=== PATIENT | male | born 1980 | race Caucasian/White ===

== ENCOUNTER 2017-08-19 13:44 | Emergency (ER) | payer SELFPAY ==
--- NOTE | 2017-08-19 15:28 | UC ---
Laceration HPI - HPI Summary HPI Summary: About 2 hours ago pt was cutting plastic strap at work and the knife slipped, cutting L index finger. Denies numbness or weakness in the finger. Last tetanus November 2014 from different finger injury. - History Of Current Complaint Hx Obtained From: Patient Laceration Location: Finger Mechanism Of Injury: Sharp Trauma Onset/Duration: Sudden Onset Severity: Mild <Yenifer Worrell - Last Filed: 08/19/17 15:58> <Sarah Quintanilla - Last Filed: 08/19/17 16:06> - History Of Current Complaint Chief Complaint: UCLaceration Stated Complaint: FINGER CUT, LEFT HAND Time Seen by Provider: 08/19/17 15:12 - Allergies/Home Medications Allergies/Adverse Reactions: Allergies Allergy/AdvReac Type Severity Reaction Status Date / Time No Known Allergies Allergy Verified 08/19/17 14:06 PMH/Surg Hx/FS Hx/Imm Hx Previously Healthy: Yes - Surgical History Surgical History: Yes Surgery Procedure, Year, and Place: TONSILLECTOMY - Family History Known Family History: Positive: Other - cataracts in mother - Social History Occupation: Employed Full-time Lives: With Family Alcohol Use: Daily Alcohol Amount: 1-2 beer at night Substance Use Type: None Smoking Status (MU): Former Smoker - Immunization History Most Recent Tetanus Shot: unsure, "may have been within last couple years" <Yenifer Worrell - Last Filed: 08/19/17 15:58> Review of Systems Constitutional: Negative Skin: Other - lac Eyes: Negative ENT: Negative Respiratory: Negative Cardiovascular: Negative Gastrointestinal: Negative Genitourinary: Negative Motor: Negative Neurovascular: Negative Musculoskeletal: Negative Neurological: Negative Psychological: Negative Is Patient Immunocompromised?: No All Other Systems Reviewed And Are Negative: Yes <Yenifer Worrell - Last Filed: 08/19/17 15:58> Physical Exam Triage Information Reviewed: Yes Appearance: Well-Appearing, No Pain Distress, Well-Nourished Vital Signs: Initial Vital Signs Temp 99.7 F 08/19/17 13:59 Pulse 74 08/19/17 13:59 Resp 18 08/19/17 13:59 BP 154/104 08/19/17 13:59 Pulse Ox 98 08/19/17 13:59 Vital Signs Reviewed: Yes Eye Exam: Normal Eyes: Positive: Conjunctiva Clear ENT Exam: Normal ENT: Positive: Normal ENT inspection, Hearing grossly normal, Pharynx normal, TMs normal Dental Exam: Normal Neck exam: Normal Neck: Positive: Supple, Nontender, No Lymphadenopathy Respiratory Exam: Normal Respiratory: Positive: Chest non-tender, Lungs clear, Normal breath sounds, No respiratory distress, No accessory muscle use Cardiovascular Exam: Normal Cardiovascular: Positive: RRR, No Murmur Musculoskeletal Exam: Normal, Other - Full Musculoskeletal: Positive: Strength Intact, ROM Intact Neurological Exam: Normal Psychological Exam: Normal Skin Exam: Other - curvilinear shallow laceration over L 2nd DIP dorsal aspect. Full tendon function. <Yenifer Worrell - Last Filed: 08/19/17 15:58> Vital Signs: Initial Vital Signs Temp 99.7 F 08/19/17 13:59 Pulse 74 08/19/17 13:59 Resp 18 08/19/17 13:59 BP 154/104 08/19/17 13:59 Pulse Ox 98 08/19/17 13:59 <Sarah Quintanilla - Last Filed: 08/19/17 16:06> Laceration Repair - Laceration Repair 1 Description: Linear Laceration Size After Repair: Length (cm) - 3, Width (mm) - 0, Depth (mm) - 0 Modified For Repair: No Cleansing Completed Via Routine Prep: Yes Irrigation With Pressure Irrigation Device: Yes Closure Material: Skin Adhesive, SteriStrips Closure Method: Single Layer <Yenifer Worrell - Last Filed: 08/19/17 15:58> Laceration Course/Dx - Differential Dx - Laceration/Wound Provider Diagnoses: L second finger laceration <Yenifer Worrell - Last Filed: 08/19/17 15:58> Discharge <Yenifer Worrell - Last Filed: 08/19/17 15:58> <Sarah Quintanilla - Last Filed: 08/19/17 16:06> - Discharge Plan Condition: Stable Disposition: HOME Patient Education Materials: Finger Laceration (ED), Steristrips (ED) Referrals: Guillermo Medina MD [Primary Care Provider] - 2 Weeks Additional Instructions: Keep the splint on ALL THE TIME while working for 7 days. Try to keep the steristrips dry for a minimum of 72 hours before you fully wash your hands or bring that hand into the shower (5 days is better, if possible). If the wound re -opens, simply apply a fresh dressing and keep wearing the splint until it is healed. Attestation Statement User Type: Provider - I was available for consult. This patient was seen by the AKILAH. The patient was not presented to, seen by, or examined by me. -Viji <Sarah Quintanilla - Last Filed: 08/19/17 16:06> Addendum entered and electronically signed by Yenifer Worrell NP 08/19/17 15:59 : UC Addendum Addendum: Addition diagnosis should include elevated blood pressure.
[2017-08-19 16:07] VITALS: BP 166/112
== END 2017-08-19 15:50 | disposition home or self-care (01) ==
LOC: UCEAST 13:44
DX: S61.211A Laceration without foreign body of left index finger without damage to nail, initial encounter (principal); W26.0XXA Contact with knife, initial encounter; Y93.9 Activity, unspecified; Y92.9 Unspecified place or not applicable; Y99.9 Unspecified external cause status; Z72.89 Other problems related to lifestyle; Z87.891 Personal history of nicotine dependence
CPT/HCPCS: 12002; 99211; G0463

== ENCOUNTER 2017-08-20 19:07 | Emergency (ER) | payer BC ==
[2017-08-20] MEDS ORDERED: HYDROmorphone INJ* 2 MG/ML CARPUJECT SYRINGE IM ONE (19:45)
[2017-08-20] MEDS ORDERED: Promethazine INJ(RESTRICTED)* 25 MG/ML 1 ML VIAL IM ONE (19:45)
[2017-08-20] MEDS ORDERED: Cephalexin CAP* 500 MG PO ONE ×2 (19:47→20:44)
[2017-08-20] MEDS ORDERED: Lidocaine 2% PF * 5 ML VIAL ONE (19:57)
[2017-08-20] MEDS ORDERED: PROCHLORPERAZINE INJ 5 MG/ML 2 ML VIAL ONE (20:04)
--- NOTE | 2017-08-20 20:16 | RAD ---
INDICATION: Crush injury to right middle and ring fingers COMPARISON: None. TECHNIQUE: 4 views of the right hand were obtained. FINDINGS: There is evidence of soft tissue injury involving the distal tips of the right middle and ring fingers. The distal tuft of the right middle finger is a small nondisplaced fracture on its palmar radial border. The tuft otherwise exhibits a bifid appearance which is either congenital or related to the recent traumatic injury. Remaining visualized bones are intact and appropriately aligned. IMPRESSION: Clear evidence of soft tissue injury of the distal right middle and ring fingers with nondisplaced fracture of the right middle finger distal tuft.
[2017-08-20] MEDS ORDERED: PROCHLORPERAZINE INJ 5 MG/ML 2 ML VIAL IM ONE (20:45)
[2017-08-20 21:13] VITALS: BP 169/102
--- NOTE | 2017-08-20 21:13 | ED ---
Randa Diaz Nilda, scribed for Hoang Padilla MD on 08/20/17 at 2001 . Adult Trauma - HPI Summary HPI Summary: This patient is a 36 year old M BIBA to [facility] with a chief complaint of finger laceration on tips of 3rd and 4th fingers on the right hand earlier this evening while at work. 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 The patient rates the pain 9/10 in severity. Symptoms aggravated by palpation and movement and alleviated by nothing. Pt reports that his last tetanus shot was in 2014. - History of Current Complaint Chief Complaint: EDExtremityUpper Stated Complaint: RIGHT HAND INJURY Time Seen by Provider: 08/20/17 19:33 Hx Obtained From: Patient Mechanism of Injury: Incised Ambulatory at the Scene: Yes Loss of Consciousness: no loss of consciousness Onset/Duration: Started Minutes Ago, Traumatic, Still Present Onset of Pain: Immediate Onset Severity: Severe Current Severity: Severe Pain Intensity: 9 Pain Scale Used: 0-10 Numeric Location: Other - 3rd and 4th fingers on the right hand Character: Sharp Aggravating Factor(s): Movement, Palpation Alleviating Factor(s): Nothing Related History: Occupational Injury - Allergy/Home Medications Allergies/Adverse Reactions: Allergies Allergy/AdvReac Type Severity Reaction Status Date / Time No Known Allergies Allergy Verified 08/19/17 14:06 PMH/Surg Hx/FS Hx/Imm Hx Sensory History: Denies: Hx Legally Blind EENT History: Denies: Hx Deafness - Surgical History Surgery Procedure, Year, and Place: TONSILLECTOMY - Immunization History Immunizations Up to Date: Yes Infectious Disease History: No Infectious Disease History: Denies: Traveled Outside the [place] in Last 30 Days - Family History Known Family History: Positive: Other - cataracts in mother Negative: Hypertension, Diabetes - Social History Occupation: Employed Full-time Alcohol Use: Daily Alcohol Amount: 1-2 beer at night Substance Use Type: Reports: None Smoking Status (MU): Former Smoker Review of Systems Positive: Other - constant severe pain at site of trauma Positive: Other - lacerations on tips of 3rd and 4th fingers on right hand. Neurological: Other - no LOC All Other Systems Reviewed And Are Negative: Yes Physical Exam - Summary Physical Exam Summary: GENERAL: Patient is a well-developed and nourished male who is lying comfortable in the stretcher. Patient is not in any acute respiratory distress. HEAD AND FACE: No signs of trauma. No ecchymosis, hematomas or skull depressions. No sinus tenderness. EYES: PERRLA, EOMI x 2, No injected conjunctiva, no nystagmus. EARS: Hearing grossly intact. Ear canals and tympanic membranes are within normal limits. MOUTH: Oropharynx within normal limits. NECK: Supple, trachea is midline, no adenopathy, no JVD, no carotid bruit, no c- spine tenderness, neck with full ROM. CHEST: Symmetric, no tenderness at palpation LUNGS: Clear to auscultation bilaterally. No wheezing or crackles. CVS: Regular rate and rhythm, S1 and S2 present, no murmurs or gallops appreciated. ABDOMEN: Soft, non-tender. No signs of distention. No rebound no guarding, and no masses palpated. Bowel sounds are normal. EXTREMITIES: FROM in all major joints, no edema, no cyanosis or clubbing. NEURO: Alert and oriented x 3. No acute neurological deficits. Speech is normal and follows commands. SKIN: Dry and warm. Laceration in both the right 3rd and 4th fingers. 3rd finger has 1 inch transverse laceration over the tip. 4th finger has a 2 cm laceration over the tip. Triage Information Reviewed: Yes Vital Signs On Initial Exam: Initial Vitals Temp Pulse Resp BP Pulse Ox 97.7 F 72 16 162/90 100 08/20/17 19:10 08/20/17 19:10 08/20/17 19:10 08/20/17 19:10 08/20/17 19:10 Vital Signs Reviewed: Yes - [place] Coma Scale Coma Scale Total: 15 Procedures - Laceration/Wound Repair Right Middle Finger Location: Other - right middle finger Description: Irregular Anesthesia: Digital, 2.0%, Lido Length, Depth and Shape: 1 inch transverse laceration over the tip of finger Betadine Prep?: No Irrigated w/ Saline (ccs): 200 Laceration/Wound Explored: clean Closure: Single Layer Suture Type: Other - surgipro suture, 3-0 Number of Sutures: 7 Layer Closure?: Yes Sterile Dressing Applied?: Yes 4th right finger Location: Other - 4th right finger Anesthesia: 2.0%, Lido Length, Depth and Shape: 2 cm laceration over the tip of 4th finger Betadine Prep?: No Irrigated w/ Saline (ccs): 200 Laceration/Wound Explored: clean Closure: Single Layer - 4 stitches to 4th finger Suture Type: Other - surgipro suture 3-0 Number of Sutures: 4 Layer Closure?: Yes Sterile Dressing Applied?: Yes Diagnostics - Vital Signs Vital Signs Temp Pulse Resp BP Pulse Ox 08/20/17 19:10 97.7 F 72 16 162/90 100 - Laboratory Lab Statement: Any lab studies that have been ordered have been reviewed, and results considered in the medical decision making process. - Radiology Hand XRAY Radiology Interpretation Completed By: Radiologist - Hand XRAY, per radiologist , reveals clear evidence of soft tissue injury of the distal right middle and ring fingers with nondisplaced fracture of the right middle finger distal tuft. ED physician has reviewed this report and agrees. Adult Trauma Course/Dx - Course Assessment/Plan: This patient is a 36 year old M BIBA to [facility] with a chief complaint of finger laceration on tips of 3rd and 4th fingers on the right hand earlier this evening while at work. 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 The patient rates the pain 9/10 in severity. Symptoms aggravated by palpation and movement and alleviated by nothing. Pt reports that his last tetanus shot was in 2014. Pending hand xray. Hand XRAY, per radiologist, reveals clear evidence of soft tissue injury of the distal right middle and ring fingers with nondisplaced fracture of the right middle finger distal tuft. ED physician has reviewed this report and agrees. Laceration repair in both 3rd and 4th right fingers using surgipro suture 3-0 and 2% Lido. Good bone coverage and hemostasis. Patient is stable and will be D/C with prescription for antibiotics, volar splint, and a disgnosis of right middle finger tuft fracture and laceration on 3rd and 4th fingers. Patient instructed to follow up with Dr. Naylor in 2 days. - Diagnoses Provider Diagnoses: Open fracture of tuft of distal phalanx of finger, Laceration of finger of right hand Discharge - Discharge Plan Condition: Stable Disposition: HOME Prescriptions: Cephalexin CAP* [Keflex CAP*] 500 mg PO QID #30 cap oxyCODONE/Acetamin 5/325 MG* [Percocet 5/325 TAB*] 1 tab PO Q6H PRN #14 tab MDD 4 PRN Reason: Pain Patient Education Materials: Finger Laceration (ED) Referrals: Tu Rankin MD [Medical Doctor] - 08/22/17 Additional Instructions: Suture removal in 10-15 days. Follow up with hand surgeon on Friday08/22/17. RETURN TO THE EMERGENCY DEPARTMENT FOR CHANGING OR WORSENING SYMPTOMS. The documentation as recorded by the Randa marin Nilda accurately reflects the service I personally performed and the decisions made by , Hoang Padilla MD.
== END 2017-08-20 21:05 | disposition home or self-care (01) ==
LOC: ED 19:07
DX: S62.639B Displaced fracture of distal phalanx of unspecified finger, initial encounter for open fracture (principal); S61.212A Laceration without foreign body of right middle finger without damage to nail, initial encounter; S61.214A Laceration without foreign body of right ring finger without damage to nail, initial encounter; W45.8XXA Other foreign body or object entering through skin, initial encounter; Y93.9 Activity, unspecified; Y92.9 Unspecified place or not applicable; Z87.891 Personal history of nicotine dependence
CPT/HCPCS: 12002; 96372; 99283; A9270-GY; J0780; J1170; J2550

== ENCOUNTER 2018-10-08 08:53 | Emergency (ER) | payer OTHER ==
[2018-10-08 09:02] VITALS: BP 150/106
[2018-10-08] MEDS: Tetracaine 0.5% OPTH.SOL 4 ML* 1 DROP BTL RIGHT EYE ONE (09:14)
[2018-10-08] MEDS: Fluorescein Sodium TOPICAL* 1 MG TEST STRIP OPHTHALMIC ONE (09:14)
--- NOTE | 2018-10-08 09:27 | UC ---
Eye Complaint HPI - HPI Summary HPI Summary: 37-year-old male comes to clinic today with a chief complaint of right eye pain. Started 2 days ago after he is working underneath his truck. He's having clear drainage of the eye and the sclera is injected. No change in vision he does not wear contact lenses or glasses. He denies any foreign body in it. Feels like his eyelid is swollen. Keeping his eyes closed decreases the pain. Opening and closing the eyelid makes the pain worse. - History of Current Complaint Chief Complaint: UCEye Stated Complaint: EYE COMPLAINT Time Seen by Provider: 10/08/18 08:59 Pain Intensity: 3 - Allergies/Home Medications Allergies/Adverse Reactions: Allergies Allergy/AdvReac Type Severity Reaction Status Date / Time No Known Allergies Allergy Verified 08/19/17 14:06 Home Medications: Home Medications Aspirin TAB* [Aspirin 325 MG TAB*] 650 mg PO Q6H PRN 10/08/18 [History Confirmed 10/08/18] PMH/Surg Hx/FS Hx/Imm Hx Previously Healthy: Yes - Surgical History Surgical History: Yes Surgery Procedure, Year, and Place: TONSILLECTOMY - Family History Known Family History: Positive: Other - cataracts in mother Negative: Hypertension, Diabetes - Social History Alcohol Use: Rare Alcohol Amount: 1-2 beer at night Substance Use Type: None Smoking Status (MU): Former Smoker - Immunization History Most Recent Tetanus Shot: unsure, "may have been within last couple years" Review of Systems All Other Systems Reviewed And Are Negative: Yes Constitutional: Positive: Negative Skin: Positive: Negative Eyes: Positive: Drainage, Eye Redness ENT: Positive: Negative Respiratory: Positive: Negative Cardiovascular: Positive: Negative Gastrointestinal: Positive: Negative Motor: Positive: Negative Neurovascular: Positive: Negative Musculoskeletal: Positive: Negative Neurological: Positive: Negative Psychological: Positive: Negative Is Patient Immunocompromised?: No Physical Exam Triage Information Reviewed: Yes Appearance: Well-Appearing, No Pain Distress, Well-Nourished Vital Signs: Initial Vital Signs Temp 97.5 F 10/08/18 08:57 Pulse 93 10/08/18 08:57 Resp 16 10/08/18 08:57 BP 150/106 10/08/18 08:57 Pulse Ox 99 10/08/18 08:57 Vital Signs Reviewed: Yes Eyes: Positive: Conjunctiva Inflamed, Discharge, Other: - On eye examination with fluorescein stain I do not see any foreign body in the lower eyelid is slightly swollen bringing up the possibility of stye do not see any corneal abrasion ENT: Positive: Nasal congestion, Nasal drainage Neck exam: Normal Neck: Positive: Supple Respiratory: Positive: No respiratory distress Musculoskeletal Exam: Normal Musculoskeletal: Positive: Strength Intact, ROM Intact Neurological Exam: Normal Neurological: Positive: Alert, Muscle Tone Normal Psychological Exam: Normal Psychological: Positive: Age Appropriate Behavior Skin Exam: Normal Eye Complaint Course/Dx - Course Course Of Treatment: On eye examination I did not see an obvious cause of the conjunctivitis the lower eyelid was slightly swollen bringing up the possibility of stye. Because I did not see an obvious cause of the conjunctivitis recommended following up with ophthalmology today or tomorrow. Starting 1 tobramycin eyedrops get reevaluated if not improving or worse. - Differential Dx/Diagnosis Provider Diagnosis: Conjunctivitis, right eye Discharge - Sign-Out/Discharge Documenting (check all that apply): Patient Departure All imaging exams completed and their final reports reviewed: No Studies - Discharge Plan Condition: Stable Disposition: HOME Prescriptions: Tobramycin 0.3% OPHTH.LIZZY* 1 drop RIGHT EYE Q4H #1 btl Patient Education Materials: Conjunctivitis (ED) Referrals: Guillermo Medina MD [Primary Care Provider] - Aniceto Moctezuma MD [Medical Doctor] - Additional Instructions: FOLLOW UP WITH VANESSA NIX, OPHTHALMOLOGY. GET RECHECKED FOR ANY WORSENING OF YOUR CONDITION OR QUESTIONS OR CONCERNS. - Billing Disposition and Condition Condition: STABLE Disposition: Home
== END 2018-10-08 09:38 | disposition home or self-care (01) ==
LOC: UCEAST 08:53
DX: H10.9 Unspecified conjunctivitis (principal); Z87.891 Personal history of nicotine dependence
CPT/HCPCS: 99212; A9270-GY; G0463

== ENCOUNTER 2020-07-08 21:30 | Observation (INO) ==
[2020-07-09] MEDS ORDERED: Ondansetron 4 mg VIAL 2 MG/ML 2 ml VIAL IV PRN (00:26)
[2020-07-09] MEDS ORDERED: HYDROcodone/ACETAMIN 5/325 mg TAB PO PRN (00:34)
[2020-07-09] MEDS: Enoxaparin 40 MG/0.4 ML SYR SUBCUT SCH ×2 (02:07→21:42)
[2020-07-09 03:48] LABS: ABS Basophils 0.1 10^3/ul (0-0.2); ABS Eosinophils 0.2 10^3/ul (0-0.6); ABS Lymphocytes 2.3 10^3/ul (1.0-4.8); ABS Monocytes 0.9 10^3/ul (0-0.8); ABS Neutrophils 6.4 10^3/ul (1.5-7.7); Eosinophil % 2.4 %; Hematocrit 45 % (42-52); Hemoglobin 15.7 g/dL (14.0-18.0); Lymphocyte % 22.9 %; Mean Corpuscular HGB Conc 35 g/dL (31-36); Mean Corpuscular Hemoglobin 30 pg (27-31); Mean Corpuscular Volume 86 fL (80-94); Mean Platelet Volume 8.5 fL (7.4-10.4); Nucleated Red Blood Cells % 0.1; Platelet Count 209 10^3/uL (150-450); Red Blood Count 5.26 10^6 /uL (4.18-5.48); Red Cell Distribution Width 14 % (10-15)
[2020-07-09 04:07] LABS: Alcohol, S < 10 mg/dL (<10); Anion Gap 6 mmol/L (2-11); BUN/Creatinine Ratio 14.6 (8-20); Blood Urea Nitrogen 18 mg/dL (6-24); CO2 Carbon Dioxide 26 mmol/L (22-32); Calcium 9.5 mg/dL (8.6-10.3); Chloride 104 mmol/L (101-111); EGFR African American 78.5 (>60); EGFR Non-African American 64.8 (>60); Glucose 133 mg/dL (70-100); Potassium 3.7 mmol/L (3.5-5.0); Sodium 136 mmol/L (135-145)
[2020-07-09] MEDS ORDERED: NS 0.9% 1000 ml BAG 1,000 ML IV ONE (05:29)
[2020-07-09] MEDS ORDERED: Influenza VAC *QUAD* 2020-21* 0.5 ML SYRINGE IM ONE (09:00)
[2020-07-09] MEDS: Orphenadrine Citrate INJ 30 mg/ml 2 ml VIAL (60 mg) IM SCH ×2 (09:07→21:41)
[2020-07-10 06:24] LABS: BUN/Creatinine Ratio 11.2 (8-20); Calcium 9.4 mg/dL (8.6-10.3); EGFR Non-African American 63.7 (>60); Potassium 4.2 mmol/L (3.5-5.0)
[2020-07-10 07:46] VITALS: BP 169/102
== END 2020-07-10 12:45 | disposition home or self-care (01) ==
LOC: ED 21:30 → SSU 21:30
PROVIDERS: ADMIT Internal Medicine Interventional Cardiology; ATTEND Pediatrics